=== PATIENT | male | born 1975 | race African-American/Black ===

== ENCOUNTER 2023-11-11 19:43 | Emergency (ER) | payer OTHER ==
[~2023-11-11] VITALS: Ht 182.9 cm; Wt 93.0 kg
[2023-11-12 01:00] VITALS: TEMP 98
[2023-11-12] MEDS: LIDOCAINE 1% HCL (LOCAL ANESTH.) INJ 20ML MDV IJ ONE (01:55)
[2023-11-12 03:21] VITALS: BP 156/83; PULSE 64; RESP 14; O2SAT 97
== END 2023-11-12 03:23 ==
LOC: EEVIPCON 19:43 → ER 19:43
DX: S01.511A Laceration without foreign body of lip, initial encounter (principal); S41.012A Laceration without foreign body of left shoulder, initial encounter; Y04.2XXA Assault by strike against or bumped into by another person, initial encounter; Y93.89 Activity, other specified; Y92.89 Other specified places as the place of occurrence of the external cause; Y99.8 Other external cause status
CPT/HCPCS: 12002; 40650; 70450; 70486; 71045